=== PATIENT | female | born 1990 | race Caucasian/White ===

== ENCOUNTER 2024-07-14 09:46 | Emergency (ER) | payer BC, SELFPAY ==
[2024-07-14 09:48] VITALS: BP 138/83; PULSE 78; RESP 18; TEMP 36.5; O2SAT 100; BMI 32.8
--- NOTE | 2024-07-14 10:12 | EKG12_ITS ---
Test Reason : CP Blood Pressure : */* mmHG Vent. Rate : 85 BPM Atrial Rate : 85 BPM P-R Int : 114 ms QRS Dur : 80 ms QT Int : 372 ms P-R-T Axes : 27 12 17 degrees QTcB Int : 442 ms Normal sinus rhythm Normal ECG Confirmed by Josesito Manzo ([id number]), movie editor CHARLY BACH ([id number]) on 07/16/2024 7:59:37 AM Referred By: EBER/BELGICA Confirmed By: Josesito Manzo
[2024-07-14 10:20] LABS: Absolute Lymphocyte Count 2.35 X10^3/uL (0.83-4.51); Basophil# 0.05 X10^3/uL; Basophil% 0.7 % (0-1); Eosinophil# 0.09 X10^3/uL; Eosinophils% 1.2 % (0-5); Hematocrit 38.9 % (37-47); Hemoglobin 13.1 g/dL (12.0-15.0); Lymphocyte # 2.35 X10^3/ul (0.83-4.51); Lymphocyte % 31.8 % (19-41); Mean Corp Hgb Conc 33.7 g/dL (32-36); Mean Platelet Vol. 10.6 fl (6.2-12.0); Monocyte# 0.87 X10^3/uL; Monocyte% 11.8 % (0-10); NRBC Flagged by Analyzer 0 % (0-5); Neutrophil # 4.02 X10^3/uL (2.7-7.7); Neutrophil % 54.2 % (47-70); Platelet Count 341 K/mm3 (150-450); RBC Distribution Width CV 13.2 % (11.6-14.6); RBC Distribution Width SD 42.9 fl (35.1-43.9); Red Blood Count 4.37 M/mm3 (4.2-5.4); White Blood Count 7.4 K/mm3 (4.4-11.0)
--- NOTE | 2024-07-14 10:25 | ED.VIS.CHEST ---
HPI History of Present Illness Chief Complaint: Chest Pain Informant: patient Onset/Context/Timing Onset: Today and Yesterday Activity at onset: gradual Timing: Continuous Quality: Positive for Heaviness Location: Substernal Current Severity: Mild Maximum Severity: Mild Worsened By: Nothing Relieved By: Nothing Associated Symptoms: Positive for Nausea (Recent nausea with a GI workup.) and Lightheadedness; Negative for Vomiting, Diaphoresis, Dyspnea, Cough, Fever, Acid Reflux or Palpitations Narrative Narrative: 34-year-old female no prior cardiac history. History of irritable bowel, anxiety and factor V deficiency. Prior cholecystectomy and . She has never had a DVT or PE. No recent travel, surgery or immobilization. No leg pain or swelling. No hemoptysis. Patient's had chest pain primarily midsternal since yesterday. No recent exertional chest pain or dyspnea. Prior Similar Symptoms: No Recent Illness/Hospitalization: No CVD Risk Factors: Negative for Hypertension, Diabetes, Hypercholesterolemia, Family History 1' </=55 or Smoking PE Risk Factors: Negative for Recent Travel/Surgery, Recent Immobilization, Prior DVT or PE, Cancer or OCP + Smoking + >/=35 TAD Risk Factors: Negative for Marfan's Syndrome PFSH PFS Medical History Factor V deficiency FH: cholecystectomy Anxiety Medical History no medical history Home Medications ?Medication ?Instructions ?Recorded ?Last Taken ?Type fluoxetine 20 mg capsule 20 mg PO DAILY 07/14/24 Unknown History fluticasone propionate 50 1 spray intranasal DAILY PRN 07/14/24 Unknown History mcg/actuation nasal allergies spray,suspension (Allergy Relief (fluticasone)) Allergy/AdvReac Type Severity Reaction Status Date / Time latex Allergy Mild Rash Verified 07/14/24 09:47 Penicillins (PCN) Allergy Mild Rash Verified 07/14/24 09:47 duloxetine (From Cymbalta) AdvReac Mild PANIC Verified 07/14/24 09:47 Family History no significant family his Surgical History Previous section Surgical History no surgical history Social History Smoking Status: Never smoker ROS ROS ED ROS Narrative Chest pain. Constitutional Constitutional ED: Denies fever(s) Eyes Eyes: Reports none ENT ENT ED: Denies ear pain Cardiovascular Cardiovascular: Reports as per HPI and chest pain; Denies palpitations or racing heartbeat Respiratory/Chest Respiratory/Chest: Denies cough or dyspnea Gastrointestinal Gastrointestinal: Denies abdominal pain Genitourinary Genitourinary ED: Denies dysuria or hematuria Musculoskeletal Musculoskeletal: Denies arthralgias Integumentary Denies abscess Neurologic Neurologic: Denies headache(s) Psychiatric Psychiatric: Reports anxiety Endocrine Endocrinology: Denies cold intolerance Hematologic/Lymphatic Hematologic/Lymphatic: Denies easy bleeding, easy bruising or lymphadenopathy Allergic/Immunologic Allergic/Immunologic ED: Denies mouth swelling, tongue swelling or urticaria EXAM Physical Exam Narrative Exam Narrative: 34-year-old female vital signs are stable afebrile. Pulse ox 100% on room air no signs hypoxia. No distress. H EENT exam pupils round react to light. Moist mucous membranes. No facial droop. Normal speech. Neck nontender. No JVD. No lymphadenopathy. Lungs clear to auscultation bilateral. Heart regular rhythm no murmur rate 80. Chest wall ribs nontender. No ecchymosis or bruising. No subcu air or crepitus. Normal exam. No reproducible pain. Abdomen soft, nontender, nondistended normal bowel sounds without peritoneal signs. Moving all 4 extremities. 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 Equal symmetrical radial pulses. Lower extremities have normal strength and range of motion. Calves are nontender without edema or cords. Back nontender. Neurologically she is awake and alert no focal motor deficits. Benign exam. Const Vital Signs: 07/14/24 09:48 07/14/24 10:12 Temperature 97.7 F L Temperature Source Oral Pulse Rate 78 Respiratory Rate 18 Blood Pressure 138/83 H Blood Pressure Mean 101 Pulse Ox 100 Oxygen Delivery Method Room Air Room Air Positive well nourished and well developed; Negative for cachectic, contractures or unkempt General Appearance ED: well developed and NAD; Negative for unkempt, cachectic, contractures or pallor Nutritional Appearance: Negative for cachectic HEENT Reports moist mucous membranes normocephalic and atraumatic Eyes PERRL and EOMs intact bilaterally Neck no lymphadenopathy, supple and no JVD Chest Wall inspection of chest normal and palpation of chest normal Chest: Negative for tenderness Resp normal respiratory effort and clear to auscultation bilaterally Effort and Inspection: Negative for respiratory distress Auscultation: Negative for rales, rhonchi, wheezes or diminished lung sounds Cardio regular rate, regular rhythm, S1 normal heart sound, S2 normal heart sound and no murmurs Peripheral Pulses: pulses 2+ throughout GI normal to inspection, nondistended, normoactive bowel sounds, soft to palpation, non-tender, non-distended and no masses Back/Spine no CVA tenderness and no thoracic nor lumbar tenderness General Back: Negative for CVA tenderness Cervical Spine: Negative for cervical spine tenderness Extremity normal to inspection General Extremety ED: Negative for edema, pulses abnormal or tenderness General Extremity: Negative for edema or pulses abnormal Neuro oriented x3 and CN's II-XII intact bilaterally Sensorium / Orientation: awake, alert, oriented to person, oriented to place and oriented to time; Negative for confused, lethargic or stuporous Motor Exam: strength 5/5 throughout Psych mental status grossly normal Appearance: Negative for unkempt Attitude: No agitated Mood & Affect: Negative for depressed, anxious or tearful Skin no rashes or lesions noted and no wounds General Skin Exam: Negative for jaundice or pallor Rashes: No rashes noted Trauma: Negative for abrasion, laceration or puncture Heart Score History: Slightly/Non-Suspicious ECG: Normal Age: </= 45 years Risk Factors: No Risk Factors Troponin: </= Normal Limit Score: 0 MDM MDM MDM Narrative Medical decision making narrative: 34-year-old female atypical nonreproducible chest pain felt to be noncardiac most likely. Undergo cardiac workup. Due to her factor V Leiden D-dimer also be obtained. She has a benign exam no reproducible pain. Repeat exam patient is doing well at 11:53 AM I will be discharged home. Will have her test results. Exam unchanged. History & Record Review Discussion w/independent historian: Patient Lab Data Attestation: I reviewed the patient's lab results. Lab results narrative: CBC normal. White count 7. H&H 13 and 38. Platelets 341. Chemistries show a gap of 9. Normal BUN and creatinine. Glucose 120. Troponin less than 3. D-dimer less than 0.27 normal. Chest x-ray unremarkable. Labs: Laboratory Results - last 24 hr 07/14/24 10:07 WBC 7.4 RBC 4.37 Hgb 13.1 Hct 38.9 MCV 89.0 MCH 30.0 MCHC 33.7 RDW Std Deviation 42.9 RDW Coeff of Alonzo 13.2 Plt Count 341 MPV 10.6 Immature Gran % (Auto) 0.300 Neut % (Auto) 54.2 Lymph % (Auto) 31.8 [place] % (Auto) 11.8 H Eos % (Auto) 1.2 Baso % (Auto) 0.7 Absolute Neuts (auto) 4.0 Absolute Lymphs (auto) 2.35 Nucleated RBC % 0 Sodium 140 Potassium 3.9 Chloride 110 H Carbon Dioxide 21.0 Anion Gap 9 BUN 9 Creatinine 0.87 Estim Creat Clear Calc 86.66 Est GFR (MDRD) Af Amer 96 Est GFR (MDRD) Non-Af 79 BUN/Creatinine Ratio 10.4 Glucose 120 H Calcium 9.2 Troponin I High Sens < 3 L Radiography Chest X-Ray - ED: 2 View, Read by ED Physician, Heart, Lungs, Mediastinum, Bony Structures, No Acute Disease and Chronic Changes Diagnostic Testing: Chest x-ray, 2 views, AP and lateral, normal cardiac silhouette. Normal lung gray. Interpreted by myself. No acute abnormality. Rhythm Strip Rhythm Strip: Sinus Rhythm Rate: 85 EKG Initial EKG: Attestation: I personally reviewed and interpreted this EKG as follows: Interpretation: Sinus Rhythm and No Acute Injury Pattern Comments: Normal sinus rhythm rate 85 no acute signs of IL or ischemia. Discharge Plan Triage Chief Complaint: Chest Pain ED Provider: Carlos Camp Dx/Rx/DC Orders Clinical Impression: Chest pain Prescriptions: No Action fluoxetine 20 mg capsule 20 mg PO DAILY fluticasone propionate [Allergy Relief (fluticasone)] 50 mcg/actuation spray,suspension 1 spray intranasal DAILY PRN (Reason: allergies) Rx Instructions: administer into each nostril Primary Care Provider: Tay Saxena Referrals: Tay Saxena DO [Primary Care Provider] - As Needed Town Doctor,Out of [Non-Staff] - Activity Restrictions/Additional Instructions: Tylenol and/or Motrin for pain. Your tests were all normal. Follow-up with your doctor as needed. Print Language: Arabic Disposition Disposition: Home, Self Care
[2024-07-14 10:37] LABS: Anion Gap 9 (5-15); BUN 9 mg/dL (7-18); BUN/Creat Ratio 10.4 RATIO (10-20); Calcium,Total 9.2 mg/dL (8.5-10.1); Chloride 110 mmol/L (98-107); Creatinine, Serum 0.87 mg/dL (0.55-1.02); EST Glomerular Filtration Rate 79 mL/min (>60); Est Glom Filt Rate - Afr Amer 96 mL/min (>60); Estimated Creatinine Clearance 86.66 ml/min; Glucose 120 mg/dL (74-106); Potassium 3.9 mmol/L (3.5-5.1); Sodium Level 140 mmol/L (136-145); Troponin-I HS < 3 pg/mL (3.0-54.0)
--- NOTE | 2024-07-14 10:45 | RAD_ITS ---
PROCEDURE: CHEST PA AND LATERAL REASON FOR EXAM: One-week history of chest pain. TECHNIQUE: PA and lateral views were obtained. COMPARISON: None. FINDINGS: EKG electrodes are seen. The cardiothymic contour is normal. The lungs are clear. The bones are unremarkable. Status post cholecystectomy. RAD/Chest PA and Lateral IMPRESSION: Unremarkable examination. Reading Location: [id number]
[2024-07-14 11:15] LABS: D-Dimer Quantitative (DVT/PE) < 0.27 FEU/ug/m (0.27-0.49)
[2024-07-14 11:47] VITALS: BP 113/78; PULSE 90; RESP 16; O2SAT 99
[2024-07-14 12:20] VITALS: BP 116/79; PULSE 88; RESP 14; TEMP 36.6; O2SAT 98
== END 2024-07-14 12:21 | disposition home or self-care (01) ==
PROVIDERS: Emergency Provider Emergency Medicine; PCP Student in an Organized Health Care Education/Training Program; Visit Provider Emergency Medicine
DX: R07.9 Chest pain, unspecified (principal); Z90.49 Acquired absence of other specified parts of digestive tract; F41.9 Anxiety disorder, unspecified; Z79.899 Other long term (current) drug therapy
CPT/HCPCS: 71046; 80048; 84484; 85025; 85379; 93005; 99284; A4216